=== PATIENT | female | born 1955 | race African-American/Black ===

== ENCOUNTER → 2016-12-10 | Outpatient (CLI) | payer OTHER ==
[2016-12-10 17:46] LABS: ABSOLUTE EOSINOPHILS # (AUTO) 0.1 10^3/uL (0.0-0.6); ABSOLUTE LYMPHOCYTES (AUTO) 2.6 10^3/uL (0.5-4.7); ABSOLUTE MONOCYTES (AUTO) 0.5 10^3/uL (0.1-1.4); BASOPHILS % (AUTO) 0.4 % (0-2); EOSINOPHILS % (AUTO) 1.3 % (0-6); HEMATOCRIT 40.8 % (36.0-47.0); HEMOGLOBIN 13.4 g/dL (12.0-15.5); HGB HCT DIFFERENCE -0.6; LYMPHOCYTES % (AUTO) 35.9 % (13-45); MEAN CORPUSCULAR HEMOGLOBIN 30.2 pg (27.0-33.4); MEAN CORPUSCULAR HGB CONC 32.8 g/dL (32.0-36.0); MEAN CORPUSCULAR VOLUME 92 fl (80-97); MONOCYTES % (AUTO) 6.3 % (3-13); RED BLOOD COUNT 4.43 10^6/uL (3.72-5.28); RED CELL DISTRIBUTION WIDTH 13.4 % (11.5-14.0); SEGMENTED NEUTROPHILS % (AUTO) 56.1 % (42-78); WHITE BLOOD COUNT 7.2 10^3/uL (4.0-10.5)
[2016-12-10 17:59] LABS: APPEARANCE,URINE SLIGHTLY-CLOUDY; BILIRUBIN,URINE NEGATIVE (NEGATIVE); GLUCOSE, URINE NEGATIVE (NEGATIVE); KETONES,URINE NEGATIVE (NEGATIVE); LEUKOCYTE ESTERASE,URINE NEGATIVE (NEGATIVE); NITRITE,URINE NEGATIVE (NEGATIVE); PROTEIN,URINE NEGATIVE (NEGATIVE); URINE SPECIFIC GRAVITY 1.013; UROBILINOGEN,URINE NEGATIVE mg/dL (<2.0)
[2016-12-10 18:02] LABS: ANION GAP 10 (5-19); BLOOD UREA NITROGEN 14 mg/dL (7-20); CALCIUM 10.2 mg/dL (8.4-10.2); CARBON DIOXIDE 34 mmol/L (22-30); CHLORIDE 100 mmol/L (98-107); CREATININE RESULT 0.98 mg/dL (0.52-1.25); GLUCOSE 90 mg/dL (75-110); POTASSIUM 4.1 mmol/L (3.6-5.0); SODIUM 143.7 mmol/L (137-145)
--- NOTE | 2016-12-10 18:02 | EKG REPORT ---
SEVERITY:- NORMAL ECG - SINUS RHYTHM : Confirmed by: Marek Chowdhury MD 10-Dec-2016 18:00:57
== END ==
LOC: OD 16:54
PROVIDERS: ATTEND Orthopaedic Surgery
DX: Z01.810 Encounter for preprocedural cardiovascular examination (principal); Z01.811 Encounter for preprocedural respiratory examination; Z01.818 Encounter for other preprocedural examination; Z79.899 Other long term (current) drug therapy; M17.11 Unilateral primary osteoarthritis, right knee
CPT/HCPCS: 36415; 71020; 80048; 81001; 85025; 93005; 93010

== ENCOUNTER 2017-02-04 09:33 | Inpatient (IN) | payer OTHER ==
[2017-01-24 12:05] LABS: HEMATOCRIT 41.7 % (36.0-47.0); HEMOGLOBIN 13.8 g/dL (12.0-15.5); HGB HCT DIFFERENCE -0.3; MEAN CORPUSCULAR HEMOGLOBIN 30.4 pg (27.0-33.4); MEAN CORPUSCULAR HGB CONC 33.2 g/dL (32.0-36.0); MEAN CORPUSCULAR VOLUME 91 fl (80-97); RED BLOOD COUNT 4.56 10^6/uL (3.72-5.28); RED CELL DISTRIBUTION WIDTH 13.6 % (11.5-14.0); WHITE BLOOD COUNT 5.8 10^3/uL (4.0-10.5)
[2017-01-24 12:10] LABS: APPEARANCE,URINE CLEAR; BILIRUBIN,URINE NEGATIVE (NEGATIVE); GLUCOSE, URINE NEGATIVE (NEGATIVE); KETONES,URINE NEGATIVE (NEGATIVE); LEUKOCYTE ESTERASE,URINE NEGATIVE (NEGATIVE); NITRITE,URINE NEGATIVE (NEGATIVE); PROTEIN,URINE NEGATIVE (NEGATIVE); URINE SPECIFIC GRAVITY 1.008; UROBILINOGEN,URINE NEGATIVE mg/dL (<2.0)
[2017-01-24 12:23] LABS: ANION GAP 13 (5-19); BLOOD UREA NITROGEN 15 mg/dL (7-20); CALCIUM 10.1 mg/dL (8.4-10.2); CARBON DIOXIDE 29 mmol/L (22-30); CHLORIDE 103 mmol/L (98-107); CREATININE RESULT 0.95 mg/dL (0.52-1.25); GLUCOSE 92 mg/dL (75-110); POTASSIUM 3.6 mmol/L (3.6-5.0); SODIUM 145.1 mmol/L (137-145)
[~2017-02-04 09:33] MED LIST: BUPIVACAINE INJ/PF LIPOSOME/PF 266 MG/20 ML SDV IJ PRN; BUPIVACAINE INJ/PF LIPOSOME/PF 266 MG/20 ML SDV ONE; CEFAZOLIN INJ 1 GM VIAL IV PRN; IBUPROFEN 800 MG/NS 250 ML IV PRN; LACTATED RINGERS 1000 ML IV PRN; LANSOPRAZOLE 15 MG TAB.RAP.DR PO PRN; LIDOCAINE 0.5% INJ-PF (5 MG/ML) 50 ML SDV SUBCUT PRN; OXYCODONE HCL SR 10 MG TABLET PO PRN; SCOPOLAMINE HYDROBROMIDE 1.5 MG PATCH.TD72 TOP PRN; THROMBIN (BOVINE) 5000 UNIT EPITAXIS KIT ONE; THROMBIN (BOVINE) TOPICAL 20000 UNIT VIAL ONE; VANCOMYCIN HCL 1,000 MG in DEXTROSE 5%-WATER 250 ML IV PRN
[2017-02-04] MEDS ORDERED: SCOPOLAMINE HYDROBROMIDE 1.5 MG PATCH.TD72 ONE (09:45)
[2017-02-04] MEDS ORDERED: PROPOFOL INJ 200 MG/20 ML VIAL IV ONE (11:00)
[2017-02-04] MEDS ORDERED: FENTANYL CITRATE INJ/PF 100 MCG/2 ML AMPUL ONE (11:00)
[2017-02-04] MEDS ORDERED: MIDAZOLAM 2 MG/2 ML INJ ONE ×2 (11:00→11:43)
[2017-02-04] MEDS ORDERED: TRANEXAMIC ACID INJ/PF 1,000 MG/10 ML SDV IV ONE (11:00)
[2017-02-04] MEDS ORDERED: EPHEDRINE SULFATE INJ 50 MG/1 ML AMPULE ONE (11:41)
[2017-02-04] MEDS ORDERED: PROMETHAZINE HCL INJ 25 MG/1 ML VIAL IV PRN (12:49)
[2017-02-04] MEDS ORDERED: FENTANYL CITRATE INJ/PF 100 MCG/2 ML AMPUL IV PRN ×3 (12:49)
[2017-02-04] MEDS ORDERED: DIPHENHYDRAMINE HCL 50 MG/ML VIAL IV PRN ×2 (12:49→13:39)
[2017-02-04] MEDS ORDERED: MORPHINE SULFATE 10 MG/ML INJ IV PRN ×2 (13:39)
[2017-02-04] MEDS ORDERED: ONDANSETRON HCL INJ/PF 4 MG/2 ML SDV IV PRN (13:39)
[2017-02-04] MEDS ORDERED: ONDANSETRON 4 MG TAB.RAPDIS PO PRN (13:39)
[2017-02-04] MEDS ORDERED: MORPHINE SULFATE 10 MG/ML INJ IM PRN (13:39)
[2017-02-04] MEDS ORDERED: ZOLPIDEM TARTRATE 5 MG TABLET PO PRN (13:39)
[2017-02-04] MEDS ORDERED: MAG HYDROX/AL HYDROX/SIMETH SUSP 30 ML UDCUP PO PRN (13:39)
[2017-02-04] MEDS ORDERED: RINGERS SOLUTION,LACTATED 1,000 ML IV PRN (13:39)
[2017-02-04] MEDS ORDERED: ACETAMINOPHEN 325 MG TABLET PO PRN (13:39)
--- NOTE | 2017-02-04 13:43 | Operative Report ---
Operative Report DATE OF SURGERY: 02/04/17 PREOPERATIVE DIAGNOSIS: Right knee arthritis OPERATION: Right knee arthroplasty SURGEON: LANETTE ÁLVAREZ ANESTHESIA: Spinal TISSUE REMOVED OR ALTERED: Bone to pathology ESTIMATED BLOOD LOSS: 100 PROCEDURE: Implants used: Femur: Striker triathlon #4 CR femur Tibia:, #3 tibia Tibial liner:, 9 mm CS insert Patella: 32 mm oval patella Procedure with the patient supine on the operating table the. Right the limb is prepped and draped in a sterile fashion. The limb was elevated for exsanguination and the tourniquet inflated to 280 torr. A standard midline median parapatellar approach the knee is taken. Access is gained to the femoral canal through the intercondylar notch. Intramedullary alignment instrumentation used to resect 10 mm of distal femur in 5 of valgus. Sizing guide indicated a size for femur. Appropriate cutting jig is then used to fashion anterior posterior and chamfer cuts. A trial reduction femurs performed and this is judged to be adequate. Attention was next turned to the tibia. Using an extra medullary alignment system 9 millimeters was resected off the lateral tibial plateau. This is sized to a size 3 tibia. A trial reduction was now performed with a 4 femur and a 3 tibia using a 9 millimeters spacer. It is full extension and central patellofemoral tracking. The articular surface the patella was next resected using an oscillating saw. All trial implants were removed. Polymethylmethacrylate is mixed and used to cement the above implants in place. On adequate curing the cement excess cement was removed the tourniquet was deflated hemostasis obtained the wound is then closed in layers using interrupted Vicryl followed by violeta. A sterile compressive dressing was applied and the patient returned to recovery room in satisfactory condition.
[2017-02-04] MEDS ORDERED: ONDANSETRON HCL INJ/PF 4 MG/2 ML SDV ONE (15:29)
[2017-02-04] MEDS ORDERED: DEXAMETHASONE SOD PHOSPHATE INJ 4 MG/1 ML VIAL ONE (15:29)
[2017-02-04] MEDS: MORPHINE SULFATE 10 MG/ML INJ IV PRN (17:41)
[2017-02-04] MEDS: SENNOSIDES/DOCUSATE 8.6-50 MG 1 EACH TABLET PO SCH (18:34)
[2017-02-04] MEDS: IBUPROFEN 800 MG in NORMAL SALINE 250 ML IV SCH (21:51)
[2017-02-04] MEDS: RIVAROXABAN 10 MG TABLET PO SCH (21:51)
[2017-02-04] MEDS: OXYCODONE HCL IR 5 MG TABLET PO PRN (21:52)
[2017-02-04] MEDS: OXYCODONE HCL SR 10 MG TABLET PO SCH (21:52)
[2017-02-05] MEDS ORDERED: VANCOMYCIN HCL 1,000 MG in DEXTROSE 5%-WATER 250 ML IV ONE (01:39)
[2017-02-05] MEDS: MORPHINE SULFATE 10 MG/ML INJ IV PRN ×2 (03:12→13:35)
[2017-02-05] MEDS: IBUPROFEN 800 MG in NORMAL SALINE 250 ML IV SCH ×4 (05:30→23:32)
[2017-02-05] MEDS: LANSOPRAZOLE 30 MG TAB.RAP.DR PO SCH (05:30)
[2017-02-05 05:31] LABS: HEMATOCRIT 33.7 % (36.0-47.0); HEMOGLOBIN 11.3 g/dL (12.0-15.5); HGB HCT DIFFERENCE 0.2; MEAN CORPUSCULAR HEMOGLOBIN 30.6 pg (27.0-33.4); MEAN CORPUSCULAR HGB CONC 33.5 g/dL (32.0-36.0); MEAN CORPUSCULAR VOLUME 91 fl (80-97); RED BLOOD COUNT 3.69 10^6/uL (3.72-5.28); RED CELL DISTRIBUTION WIDTH 13.4 % (11.5-14.0); WHITE BLOOD COUNT 9.4 10^3/uL (4.0-10.5)
[2017-02-05 05:45] LABS: ANION GAP 8 (5-19); BLOOD UREA NITROGEN 12 mg/dL (7-20); CALCIUM 9.2 mg/dL (8.4-10.2); CARBON DIOXIDE 29 mmol/L (22-30); CHLORIDE 105 mmol/L (98-107); CREATININE RESULT 0.82 mg/dL (0.52-1.25); GLUCOSE 118 mg/dL (75-110); POTASSIUM 3.8 mmol/L (3.6-5.0); SODIUM 141.9 mmol/L (137-145)
--- NOTE | 2017-02-05 06:56 | PDOC PROGRESS REPORT ---
Subjective Progress Note for:: 02/05/17 Subjective:: Patient with minor complaints of discomfort. She states that she likes the hospital because she's waited on Physical Exam Vital Signs: Temp Pulse Resp BP Pulse Ox 36.4 C 56 L 17 100/53 L 97 02/05/17 03:39 02/05/17 03:39 02/05/17 03:39 02/05/17 03:39 02/05/17 03:39 Intake & Output 02/03/17 02/04/17 02/05/17 06:59 06:59 06:59 Intake Total 3938 Output Total 4000 Balance -62 Weight 98.9 kg General appearance: PRESENT: no acute distress Head exam: PRESENT: normocephalic Respiratory exam: PRESENT: unlabored Cardiovascular exam: PRESENT: RRR Vascular exam: PRESENT: normal capillary refill GI/Abdominal exam: PRESENT: soft Rectal exam: PRESENT: deferred Extremities exam: PRESENT: other - Right lower extremity dressing clean dry and intact. Distal neurovascular examinations intact. Neurological exam: PRESENT: alert, awake, oriented to person, oriented to place , oriented to time, oriented to situation. ABSENT: motor sensory deficit Psychiatric exam: PRESENT: appropriate affect, normal mood. ABSENT: homicidal ideation, suicidal ideation Skin exam: PRESENT: dry, intact, warm. ABSENT: cyanosis, rash Results Laboratory Results: 02/05/17 05:11 02/05/17 05:11 02/04/17 02/05/17 02/05/17 10:09 05:11 05:11 WBC 9.4 RBC 3.69 L Hgb 11.3 L Hct 33.7 L MCV 91 MCH 30.6 MCHC 33.5 RDW 13.4 Plt Count 169 Sodium 141.9 Potassium 4.0 3.8 Chloride 105 Carbon Dioxide 29 Anion Gap 8 BUN 12 Creatinine 0.82 Est GFR ( Amer) > 60 Est GFR (Non-Af Amer) > 60 Glucose 118 H Calcium 9.2 Impressions: Knee X-Ray 02/04/17 13:40 IMPRESSION: SATISFACTORY POSTOPERATIVE RIGHT KNEE. Status: Imported from PACS Assessment & Plan - Diagnosis (1) Arthritis of right knee Is this a current diagnosis for this admission?: YesPlan: 61-year-old black female, postop day 1 right knee arthroplasty. The patient and later 150 feet yesterday which was excellent. Dressing remains clean dry and intact. Ongoing physical therapy today and dressing change tomorrow. Anticipate discharge home with home health services tomorrow. - Time Time Spent with patient: 15-24 minutes Anticipated discharge: Home with Homehealth Within: within 24 hours
[2017-02-05] MEDS ORDERED: (PENDING PHARMACY ID) (Citalopram Hydrobromide [Citalopram Hbr] 10 MG) PO SCH (08:00)
[2017-02-05] MEDS: ATORVASTATIN CALCIUM 10 MG TABLET PO SCH (08:06)
[2017-02-05] MEDS: CITALOPRAM HYDROBROMIDE 20 MG TABLET PO SCH (08:07)
[2017-02-05] MEDS: POTASSIUM CHLORIDE 10 MEQ TABLET.SA PO SCH (08:07)
[2017-02-05] MEDS: OXYCODONE HCL IR 5 MG TABLET PO PRN ×3 (08:21→23:34)
[2017-02-05] MEDS: PRENATAL VITAMIN W-O CA NO5/FE FUMARATE/FA CAPSULE PO SCH (09:50)
[2017-02-05] MEDS: SENNOSIDES/DOCUSATE 8.6-50 MG 1 EACH TABLET PO SCH ×2 (09:50→17:31)
[2017-02-05] MEDS: OXYCODONE HCL SR 10 MG TABLET PO SCH ×2 (09:51→21:47)
[2017-02-05] MEDS: HYDROCHLOROTHIAZIDE 25 MG TABLET PO SCH (09:51)
[2017-02-05] MEDS ORDERED: HYDROCHLOROTHIAZIDE 12.5 MG CAPSULE PO SCH (10:00)
[2017-02-05] MEDS ORDERED: TRANEXAMIC ACID INJ/PF 1,000 MG/10 ML SDV IV ONE (15:00)
[2017-02-05] MEDS: RIVAROXABAN 10 MG TABLET PO SCH (21:47)
[2017-02-05 23:42] VITALS: BP 123/63
[2017-02-06] MEDS: IBUPROFEN 800 MG in NORMAL SALINE 250 ML IV SCH (04:43)
[2017-02-06 04:48] LABS: HEMATOCRIT 32.4 % (36.0-47.0); HEMOGLOBIN 10.9 g/dL (12.0-15.5); HGB HCT DIFFERENCE 0.3; MEAN CORPUSCULAR HEMOGLOBIN 30.8 pg (27.0-33.4); MEAN CORPUSCULAR HGB CONC 33.7 g/dL (32.0-36.0); MEAN CORPUSCULAR VOLUME 92 fl (80-97); RED BLOOD COUNT 3.54 10^6/uL (3.72-5.28); WHITE BLOOD COUNT 9.3 10^3/uL (4.0-10.5)
[2017-02-06] MEDS: OXYCODONE HCL IR 5 MG TABLET PO PRN (05:19)
[2017-02-06] MEDS: LANSOPRAZOLE 30 MG TAB.RAP.DR PO SCH (05:20)
--- NOTE | 2017-02-06 07:41 | PDOC DISCHARGE SUMMARY ---
General - Admit/Disc Date/PCP Admission Date/Primary Care Provider: 02/04/17 09:33 GERSON RAMIREZ MD Discharge Date: 02/06/17 - Discharge Diagnosis (1) Arthritis of right knee Summary: Patient is 61-year-old black female who presents with progressive right knee pain and functional disability. She is admitted for elective right knee arthroplasty. - Additional Information Resuscitation Status: Full Code Discharge Diet: As Tolerated, Regular Discharge Activity: Activity As Tolerated, Balance Activity w/Rest Home Medications: Hydrochlorothiazide 25 mg PO DAILY 03/29/13 Aspirin [Aspirin EC] 81 mg PO QAM 01/24/17 Atorvastatin Calcium [Lipitor 10 mg Tablet] 10 mg PO QAM 01/24/17 Citalopram Hydrobromide [Citalopram HBr] 10 mg PO QAM 01/24/17 Potassium Chloride 20 meq PO QAM 01/24/17 Oxycodone HCl [Oxy-Ir 5 mg Tablet] 5 mg PO Q6HP PRN #0 tablet 02/06/17 Rivaroxaban [Xarelto 10 mg Tablet] 10 mg PO QHS #0 tablet 02/06/17 History of Present Illness History of Present Illness: THEODORA DANG is a 61 year old female Hospital Course Hospital Course: Patient submitted to the operating room where she undergoes uncomplicated right knee arthroplasty. She's returned to the floor in satisfactory condition. She' s seen by physical therapy per progressive weightbearing as tolerated ambulation. She makes excellent progress in this regard. Dressing is clean dry and intact. On postop day 2. Physical Exam Vital Signs: Temp Pulse Resp BP Pulse Ox 37.3 C 72 17 123/63 96 02/05/17 23:42 02/05/17 23:42 02/05/17 23:42 02/05/17 23:42 02/05/17 23:42 Intake & Output 02/05/17 02/06/17 02/07/17 06:59 06:59 06:59 Intake Total 3938 1320 Output Total 4000 Balance -62 1320 Weight 98.9 kg 108.3 kg General appearance: PRESENT: no acute distress Head exam: PRESENT: normocephalic Eye exam: PRESENT: EOMI Respiratory exam: PRESENT: unlabored Cardiovascular exam: PRESENT: RRR Pulses: PRESENT: +1 pedal pulses bilateral Vascular exam: PRESENT: normal capillary refill GI/Abdominal exam: PRESENT: soft Rectal exam: PRESENT: deferred Extremities exam: PRESENT: other - Left knee dressing is clean dry and intact. On postop day #2. Multilevel edema. Neurological exam: PRESENT: alert, awake, oriented to person, oriented to place , oriented to time, oriented to situation, CN II-XII grossly intact. ABSENT: motor sensory deficit Psychiatric exam: PRESENT: appropriate affect, normal mood. ABSENT: homicidal ideation, suicidal ideation Skin exam: PRESENT: dry, intact, warm. ABSENT: cyanosis, rash Results Laboratory Results: 02/06/17 04:16 03 05:11 02/06/17 04:16 WBC 9.3 RBC 3.54 L Hgb 10.9 L Hct 32.4 L MCV 92 MCH 30.8 MCHC 33.7 RDW 14.0 Plt Count 167 Impressions: Knee X-Ray 02/04/17 13:40 IMPRESSION: SATISFACTORY POSTOPERATIVE RIGHT KNEE. Status: Imported from PACS Plan Discharge Plan: Patient be discharged home with home health nursing, home health physical therapy, we'll Walker, bedside commode. Home health nursing can change the rashel dressing on postop day #7. Patient will return to see Dr. Galindo in the [facility] for surgery in approximately 2 weeks for staple removal. Time Spent: Less than 30 Minutes
[2017-02-06] MEDS: POTASSIUM CHLORIDE 10 MEQ TABLET.SA PO SCH (11:06)
[2017-02-06] MEDS: PRENATAL VITAMIN W-O CA NO5/FE FUMARATE/FA CAPSULE PO SCH (11:06)
[2017-02-06] MEDS: SENNOSIDES/DOCUSATE 8.6-50 MG 1 EACH TABLET PO SCH (11:07)
[2017-02-06] MEDS: OXYCODONE HCL SR 10 MG TABLET PO SCH (11:07)
[2017-02-06] MEDS: HYDROCHLOROTHIAZIDE 25 MG TABLET PO SCH (11:07)
[2017-02-06] MEDS: ATORVASTATIN CALCIUM 10 MG TABLET PO SCH (11:07)
[2017-02-06] MEDS: CITALOPRAM HYDROBROMIDE 20 MG TABLET PO SCH (11:09)
== END 2017-02-06 11:15 | disposition home health service (06) | DRG 470 ==
LOC: INOR 09:33 → 4S 14:57
PROVIDERS: ADMIT Orthopaedic Surgery; ATTEND Orthopaedic Surgery
PROC: 0SRC0J9 Replacement of Right Knee Joint with Synthetic Substitute, Cemented, Open Approach (ICD-10-PCS; principal; 2017-02-04 11:15)
DX: M17.11 Unilateral primary osteoarthritis, right knee (principal); E78.5 Hyperlipidemia, unspecified; Z79.899 Other long term (current) drug therapy; Z79.82 Long term (current) use of aspirin; Z79.02 Long term (current) use of antithrombotics/antiplatelets
CPT/HCPCS: 01402; 36415; 80048; 81001; 84132; 85027; 88305; 88311; C9290; J0690; J1100; J1741; J2250; J2270; J2405; J2704; J3010; J3370; J3490; J7050; J7060

== ENCOUNTER → 2020-06-06 | Outpatient (CLI) | payer OTHER ==
[2020-06-06 18:00] LABS: ABSOLUTE EOSINOPHILS # (AUTO) 0.1 10^3/uL (0.0-0.6); ABSOLUTE LYMPHOCYTES (AUTO) 2.2 10^3/uL (0.5-4.7); ABSOLUTE MONOCYTES (AUTO) 0.6 10^3/uL (0.1-1.4); ABSOLUTE NEUT (AUTO) 4.2 10^3/uL (1.7-8.2); BASOPHILS % (AUTO) 0.7 % (0-2); EOSINOPHILS % (AUTO) 1.5 % (0-6); HEMATOCRIT 40.4 % (36.0-47.0); HEMOGLOBIN 13.6 g/dL (12.0-15.5); LYMPHOCYTES % (AUTO) 31.3 % (13-45); MEAN CORPUSCULAR HEMOGLOBIN 31.3 pg (27.0-33.4); MEAN CORPUSCULAR HGB CONC 33.6 g/dL (32.0-36.0); MEAN CORPUSCULAR VOLUME 93 fl (80-97); MONOCYTES % (AUTO) 8.6 % (3-13); PLATELET COUNT 225 10^3/uL (150-450); RED BLOOD COUNT 4.35 10^6/uL (3.72-5.28); RED CELL DISTRIBUTION WIDTH 13.9 % (11.5-14.0); SEGMENTED NEUTROPHILS % (AUTO) 57.9 % (42-78); TOTAL CELLS COUNTED % (AUTO) 100 %; WHITE BLOOD COUNT 7.2 10^3/uL (4.0-10.5)
[2020-06-06 18:41] LABS: ERYTHROCYTE SEDIMENTATION RATE 20 mm/hr (0-30)
[2020-06-06 19:17] LABS: C-REACTIVE PROTEIN 8.2 mg/L (<10.0); URIC ACID 6.3 mg/dL (2.5-7.5)
== END ==
LOC: OD 16:59
PROVIDERS: ATTEND Orthopaedic Surgery
DX: M25.50 Pain in unspecified joint (principal)
CPT/HCPCS: 36415; 84550; 85025; 85652; 86038; 86140; 86200; 86431

== ENCOUNTER 2020-10-11 06:03 | Day surgery (SDC) | payer MEDICARE, OTHER ==
[2020-10-07 10:04] LABS: MEAN CORPUSCULAR HEMOGLOBIN 30.5 pg (27.0-33.4); MEAN CORPUSCULAR HGB CONC 33.4 g/dL (32.0-36.0); MEAN CORPUSCULAR VOLUME 91 fl (80-97); PLATELET COUNT 206 10^3/uL (150-450); RED BLOOD COUNT 4.28 10^6/uL (3.72-5.28); RED CELL DISTRIBUTION WIDTH 13.6 % (11.5-14.0); WHITE BLOOD COUNT 4.6 10^3/uL (4.0-10.5)
[2020-10-07 10:13] LABS: APPEARANCE,URINE SLIGHTLY-CLOUDY; BILIRUBIN,URINE NEGATIVE (NEGATIVE); COLOR,URINE YELLOW; GLUCOSE, URINE NEGATIVE (NEGATIVE); KETONES,URINE NEGATIVE (NEGATIVE); LEUKOCYTE ESTERASE,URINE NEGATIVE (NEGATIVE); NITRITE,URINE NEGATIVE (NEGATIVE); PROTEIN,URINE NEGATIVE (NEGATIVE); URINE SPECIFIC GRAVITY 1.004; UROBILINOGEN,URINE NEGATIVE mg/dL (<2.0)
[2020-10-07 10:33] LABS: ANION GAP 11 (5-19); BLOOD UREA NITROGEN 13 mg/dL (7-20); CALCIUM 10.1 mg/dL (8.4-10.2); CARBON DIOXIDE 29 mmol/L (22-30); CHLORIDE 102 mmol/L (98-107); GLUCOSE 97 mg/dL (75-110); POTASSIUM 4.1 mmol/L (3.6-5.0)
--- NOTE | 2020-10-08 09:19 | EKG REPORT ---
SEVERITY:- OTHERWISE NORMAL ECG - SINUS BRADYCARDIA : Confirmed by: Domingo Ospina 08-Oct-2020 09:18:22
[~2020-10-11 06:03] MED LIST changes: -BUPIVACAINE INJ/PF LIPOSOME/PF 266 MG/20 ML SDV IJ PRN; -BUPIVACAINE INJ/PF LIPOSOME/PF 266 MG/20 ML SDV ONE; +CEFAZOLIN 2 GM/D5W RTU 2 GM/50 ML RTUPB IV PRN; -CEFAZOLIN INJ 1 GM VIAL IV PRN; -IBUPROFEN 800 MG/NS 250 ML IV PRN; -LANSOPRAZOLE 15 MG TAB.RAP.DR PO PRN; -OXYCODONE HCL SR 10 MG TABLET PO PRN; -SCOPOLAMINE HYDROBROMIDE 1.5 MG PATCH.TD72 TOP PRN; -THROMBIN (BOVINE) 5000 UNIT EPITAXIS KIT ONE; -THROMBIN (BOVINE) TOPICAL 20000 UNIT VIAL ONE; -VANCOMYCIN HCL 1,000 MG in DEXTROSE 5%-WATER 250 ML IV PRN
[2020-10-11] MEDS ORDERED: PROPOFOL INJ 200 MG/20 ML VIAL IV ONE (06:22)
[2020-10-11] MEDS ORDERED: FENTANYL CITRATE INJ/PF 100 MCG/2 ML AMPUL ONE (06:22)
[2020-10-11] MEDS ORDERED: MIDAZOLAM 2 MG/2 ML INJ ONE (06:22)
[2020-10-11] MEDS ORDERED: DEXAMETHASONE SOD PHOSPHATE INJ 4 MG/1 ML VIAL ONE (06:22)
[2020-10-11] MEDS ORDERED: ONDANSETRON HCL INJ/PF 4 MG/2 ML SDV ONE ×2 (06:22→10:32)
[2020-10-11] MEDS ORDERED: CEFAZOLIN 2 GM/D5W RTU 2 GM/50 ML RTUPB IV ONE (06:25)
[2020-10-11] MEDS ORDERED: BUPIVACAINE HCL 0.25 % INJ/PF (2.5 MG/1 ML) 30 ML VIAL ONE (07:22)
[2020-10-11] MEDS ORDERED: BETAMET ACET/BETAMET NA INJ 6 MG/1 ML IM PRN (07:52)
[2020-10-11] MEDS ORDERED: BUPIVACAINE HCL 0.5 % INJ/PF 30 ML SDV ONE (07:55)
[2020-10-11] MEDS ORDERED: LIDOCAINE 1% INJ-PF (10 MG/ML) 30 ML SDV ONE (07:55)
[2020-10-11] MEDS ORDERED: BETAMET ACET/BETAMET NA INJ 6 MG/1 ML ONE (08:30)
[2020-10-11] MEDS ORDERED: MORPHINE SULFATE 10 MG/ML INJ IV PRN ×2 (08:52→10:32)
[2020-10-11] MEDS ORDERED: FENTANYL CITRATE INJ/PF 100 MCG/2 ML AMPUL IV PRN ×3 (08:52)
[2020-10-11] MEDS ORDERED: DIPHENHYDRAMINE HCL 50 MG/ML VIAL IV PRN (08:52)
[2020-10-11] MEDS ORDERED: MEPERIDINE HCL/PF INJ 25 MG/1 ML DISP.SYRIN IV PRN (08:52)
[2020-10-11] MEDS ORDERED: PROMETHAZINE HCL INJ 25 MG/1 ML VIAL IV PRN ×2 (08:52)
[2020-10-11] MEDS ORDERED: ONDANSETRON HCL INJ/PF 4 MG/2 ML SDV IV PRN (08:52)
[2020-10-11] MEDS ORDERED: OXYCODONE-ACETAMINOPHEN 5-325 MG TABLET PO PRN (10:32)
--- NOTE | 2020-10-11 10:33 | Discharge Summary ---
Discharge Summary (SDC) - Discharge Final Diagnosis: Left thumb CMC arthritis Date of Surgery: 10/11/20 Discharge Date: 10/11/20 Condition: Good Treatment or Instructions: Schedule Follow Up w/ Dr. Albert Castellano @ [facility] to be seen in 10-14 days or as scheduled [place]: [place]: [place]: Ice and elevate Keep splint clean/dry/intact, do not remove. If your fingers become numb please unwrap the Darwin wrap but leave the splint in place, if the sensation does not return within 30 minutes please return to the emergency department. May begin finger range of motion attempting to make full fist. Please use ibuprofen (Motrin or Advil) 600-800 mg every 8 hours as needed for pain or fever DO NOT TAKE w/ TORADOL may use once TORADOL complete. You may also use acetaminophen (Tylenol) 1000 mg every 4-6 hours as needed for pain or fever. Please be aware that many medications contain acetaminophen, do not exceed a total of 1000 mg of acetaminophen every 6 hours. If ibuprofen and acetaminophen are not sufficient for your pain you may take the Percocet/[place]. Please be aware that the Percocet/[place] does contain Tylenol. Stool softener of choice when on pain medication. USE OF EAHL-GAX-RVSFFON IBUPROFEN: Ibuprofen (Advil, Nuprin, Medipren, Motrin IB) is a medication for fever and pain control. In addition, it has anti- inflammatory effects which may be beneficial, especially in the treatment of injuries. It's best to take ibuprofen with food. Persons with ulcer disease or allergy to aspirin should notify their physician of this before taking ibuprofen. Ibuprofen can be given every four to six hours, for a total of four doses daily. Age Pain or fever dose Antiinflammatory dose 6-8 yr 200 mg (1 tab) 200 mg (1 tab) 9-11 yr 200 mg (1 tab) 200-400 mg (1-2 tab) 11-14 yr 200-400 mg (1-2 tab) 400 mg (2 tab) 15-adult 400 mg (2 tab) 600 mg (3 tab) ORAL NARCOTIC MEDICATION: You have been given a prescription for pain control. This medication is a narcotic. It's best taken with food, as nausea can result if taken on an empty stomach. Don't operate machinery or drive within six hours of taking this medication. Do not combine this medicine with alcohol, or with any medication which can cause sedation (such as cold tablets or sleeping pills) unless you get permission from the physician. Narcotics tend to cause constipation. If possible, drink plenty of fluids and eat a diet high in fiber and fruits. Please be aware that prescription narcotics also have the potential for abuse. People become addicted to these medications because of the general sense of wellbeing that they induce. This feeling along with a significant reduction in tension, anxiety, and aggression provides a stimulating seductive quality to these drugs. Once your pain is under control, we encourage you to discard your unused narcotics. Prescriptions: Ketorolac Tromethamine [Toradol 10 mg Tablet] 10 mg PO Q8HP PRN #10 tablet PRN Reason: Oxycodone HCl/Acetaminophen [Percocet 5-325 mg Tablet] 1 tab PO Q6 PRN #25 tab PRN Reason: Referrals: GERSON RAMIREZ MD [Primary Care Provider] - Discharge Diet: As Tolerated Respiratory Treatments at Home: Deep Breathing/Coughing, Incentive Spirometer Discharge Activity: No Lifting Over 10 Pounds, No Lifting/Push/Pulling Report the Following to Your Physician Immediately: Fever over 101 Degrees, Unusual Bleeding, Redness, Swelling, Warmth, Increased Soreness
--- NOTE | 2020-10-11 10:41 | Operative Report ---
Operative Report DATE OF SURGERY: 10/11/20 PREOPERATIVE DIAGNOSIS: Left thumb CMC arthritis. Left carpal tunnel syndrome. Left fourth dorsal compartment extensor tenosynovitis. Right index trigger finger POSTOPERATIVE DIAGNOSIS: Same OPERATION: 1. Left thumb CMC arthroplasty with trapezial excision, ligament reconstruction, tendon interposition utilizing flexor carpi radialis autograft. 2. Left open carpal tunnel release. 3. Left fourth dorsal compartment exte nsor tenosynovectomy. 4. Right index A1 rima injection SURGEON: IZABEL TEJADA ANESTHESIA: GA TISSUE REMOVED OR ALTERED: Tenosynovium sent for culture and pathology COMPLICATIONS: None ESTIMATED BLOOD LOSS: Minimal PROCEDURE: Indication for above procedure: 65-year-old female with longstanding history of left thumb CMC arthritis. Attempted to remeasure which included injections anti-inflammatories and immobilization. Also had evidence of a concomitant carpal tunnel and fourth dorsal extensor tenosynovitis. We discussed treatment options including operative versus nonoperative intervention of discussing risk and benefits joint decision was made to proceed with operative intervention. Furthermore patient has evidence of right index trigger finger and thus we will proceed with additional A1 rima injection. Procedure In Detail: Patient was seen and evaluated in the preoperative holding area. The LEFT upper extremity was initialized and marked. Patient received 2g of Ancef IV for bacterial prophylaxis. Patient was taken back to the operative room where transferred to the operative table and placed under general anesthesia. Once they were adequately anesthetized a nonsterile tourniquet was placed on the upper extremity. A surgical team debriefing was performed ensuring all instrumentation was available, the surgical procedure was discussed with possible concerns reviewed. The upper extremity was prepped with chlorhexidine and alcohol and draped in a sterile fashion. A timeout was done identifying correct patient, procedure and extremity everyone in attendance agree with this and verbalized no concerns. Right index finger was prepped with alcohol and 1 cc of 6 mg a cc of Celestone was injected into the A1 rima. The left operative extremity was exsanguinated the tourniquet was inflated to 250 mmHg. Longitudinal skin incision made along the fourth dorsal compartment. Blunt dissection was performed. Moderate amount of tenosynovium was noted just distal to the extensor retinaculum. No tenosynovium deep to the extensor retinaculum. Portion of the extensor retinaculum was opened distally and tenosynovectomy was performed to the fourth dorsal compartment. Tenosynovium was sent to pathology and microbiology. A peripheral veins were coagulated bipolar cautery. Skin was closed with interrupted horizontal mattress 4-0 nylon suture. A transverse skin incision was made just proximal to the wrist flexion crease ulnar to the palmaris longus. Blunt dissection was performed down to the palmaris longus tendon which was retracted radially. Deep to the palmaris longus tendon was the volar carpal ligament this was incised identifying the median nerve deep. With the use of a Wells elevator any soft tissue/synovium was freed from the undersurface of the transverse carpal ligament. The hook of hamate was identified ulnarly. Arthrex cannulas were then inserted palpating the hamate hook. Once the arthroscope was introduced however there was significant tenosynovium and adhesions of the flexor tendons to the undersurface of the transverse carpal ligament thus decision was made to transition to an open carpal tunnel release. Additional longitudinal skin incision was made in line with the radial border of the ring finger proximal to Rapp's cardinal line. Palmar fascia was then incised in line with the skin incision the confines of the transverse carpal ligament was then identified. Transverse carpal ligament was then released in its entirety. Portion of the flexor tenosynovium was excised. Median nerve was neurolysed a patent median artery was noted adjacent to the median nerve. Neurolysis was also performed through the proximal transverse incision well. Large dilator was placed proximally distally ensure adequate release. Wounds then copiously irrigated with normal saline. Peripheral veins were coagulated bipolar cautery. Skin was closed with interrupted horizontal mattress 4-0 nylon suture. A longitudinal skin incision was made in line with the first dorsal compartment. I then meticulously dissected down to the interval of the APL and EPB identifying the superficial radial nerve branches which were retracted. I then identified the radial artery which was protected throughout the entirety of the case with a Wells elevator. A T-shaped capsulotomy was made at the CMC joint of the thumb. A freer elevator was used to luh out the CMC joint, fluoroscopy confirmed the thumb cmc joint placement. The capsule was released off of the trapezium circumferentially. The FCR insertion volarly was protected. Using a rongeur the trapezium was excised as one unit. I then removed any residual loose bodies and bone fragments. I then inspected the STT joint. There was no advanced degenerative changes of the STT joint. I then turned my attention to harvesting the FCR tendon. The FCR was identified and 2 transverse incisions were made. The entire FCR tendon was harvested. The tendon was then retrieved from the CMC joint of the thumb. The base of the thumb metacarpal was rongeured to allow for cancellous tendon healing. I tenolysed the FCR up to its insertion at the second metacarpal. Using a rongeur the 1st metacarpal base osteophytes were removed. Bone tunnels were attempted to be created with PDS suture but unsuccessful thus given patient's severe disease and bone quality decision was made to transition to a CMC tight rope. Additional wants to schedule was made along the second metacarpal base. Branch of the superficial radial nerve was identified and retracted. Dorsal interossei fascia was split to expose the metacarpal. The Arthrex guidewire was then placed from the thumb metacarpal base into the index metacarpal base and confirmed on C arm. Button FiberWire was then passed while maintaining thumb and neutral radial and palmar abduction with a bump the button was secured. C arm fluoroscopy was obtained confirming appropriate placement however there was residual laxity of the CMC joint thus the button was retied and secured. C arm fluoroscopy was once again obtained confirming adequate stability and no evidence of subsidence. Once this was confirmed wounds were copiously irrigated with normal saline. Fascia of the dorsal interossei was closed with interrupted 3-0 Vicryl suture. Skin was closed horizontal mattress 4-0 nylon suture. The FCR tendon was then secured to the capsule deep to the index and thumb metacarpal base. Interposition was then performed with a 2-0 Vicryl suture to ensure no evidence of extrusion. Capsule was then closed with interrupted 2-0 Vicryl suture. Tourniquet was deflated and peripheral bleeding was controlled with bipolar cautery until the wound was dry. Wound was copiously irrigated with normal saline. Subcutaneous tissues were closed with interrupted 3-0 Vicryl suture. Skin was closed interrupted 4-0 nylon horizontal mattress sutures. Patient was extubated and transferred to the operative stretcher. There was no intraoperative complications patient tolerated procedure well with stable to PACU. Postoperative plan: Patient will continue the splint for 2 weeks. Patient will then be transitioned to a cast for an additional 2 weeks. They will then begin occupational therapy at 4 weeks and will be fitted for a thermoplastic splint at that time.
[2020-10-11] MEDS ORDERED: OXYCODONE-ACETAMINOPHEN 5-325 MG TABLET ONE (11:43)
[2020-10-11] MEDS ORDERED: SUCCINYLCHOLINE CHLORIDE INJ 200 MG/10 ML VIAL ONE (14:43)
[2020-10-11 15:32] VITALS: BP 131/77
--- NOTE | 2020-10-11 16:23 | RADIOLOGY REPORT (SQ) ---
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 FLUOROSCOPY TIME: 22 seconds 2 images saved to PACS. TECHNIQUE: Intra-operative images acquired during surgical procedure to evaluate progress. NUMBER OF IMAGES: 2 LIMITATIONS: None. FINDINGS: Images from fluoro document the procedure. IMPRESSION: Carpometacarpal arthroplasty. Refer to operative note for further information. COMMENT: Quality ID [id number]: Final reports for procedures using fluoroscopy that document radiation exp osure indices, or exposure time and number of fluorographic images (if radiation exposure indices are not available) Please consult full operative report of the attending physician for description of the procedure. TECHNICAL DOCUMENTATION: JOB ID: [id number] 2010 [employer]- All Rights Reserved Reading location - IP/workstation name: [email or web address]
--- NOTE | 2020-10-11 16:23 | RADIOLOGY REPORT (SQ) ---
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 FLUOROSCOPY TIME: 22 seconds 2 images saved to PACS. TECHNIQUE: Intra-operative images acquired during surgical procedure to evaluate progress. NUMBER OF IMAGES: 2 LIMITATIONS: None. FINDINGS: Images from fluoro document the procedure. IMPRESSION: Carpometacarpal arthroplasty. Refer to operative note for further information. COMMENT: Quality ID [id number]: Final reports for procedures using fluoroscopy that document radiation exp osure indices, or exposure time and number of fluorographic images (if radiation exposure indices are not available) Please consult full operative report of the attending physician for description of the procedure. TECHNICAL DOCUMENTATION: JOB ID: [id number] 2010 [employer]- All Rights Reserved Reading location - IP/workstation name: [email or web address]
== END 2020-10-11 13:00 | disposition home or self-care (01) ==
LOC: OROUT 06:03
PROVIDERS: ATTEND Orthopaedic Surgery
DX: M18.12 Unilateral primary osteoarthritis of first carpometacarpal joint, left hand (principal); G56.02 Carpal tunnel syndrome, left upper limb; M65.321 Trigger finger, right index finger; M65.832 Other synovitis and tenosynovitis, left forearm; M79.641 Pain in right hand; M79.642 Pain in left hand; Z79.899 Other long term (current) drug therapy; E78.5 Hyperlipidemia, unspecified; I10 Essential (primary) hypertension; F32.9 Major depressive disorder, single episode, unspecified; Z20.828 Contact with and (suspected) exposure to other viral communicable diseases
CPT/HCPCS: 20552; 64721; 25116; 25447; 93005; 36415 ×2; 87070; 87205; 84132; 85027; 87075; 80048; 81001; 88304 ×2; 73120; 93010; 64415; 76942; 01830; C1713; U0003; J2250; J3490; J1100; J3010; A9270; J0702; J0330; J2405; J2704; J0690; C9803; 87635